=== PATIENT | male | born 1940 | race Caucasian/White ===

== ENCOUNTER → 2019-03-30 | Outpatient (CLI) | payer MEDICARE, SELFPAY | END | disposition home or self-care (01) | LOC: PSN 12:50 | PROVIDERS: Family Provider Family Medicine; PCP Family Medicine; Referring Provider Nurse Practitioner Family; Visit Provider Nurse Practitioner Family | DX: I25.10 Atherosclerotic heart disease of native coronary artery without angina pectoris (principal); I48.92 Unspecified atrial flutter | CPT/HCPCS: 93225; 93226 ==

== ENCOUNTER 2019-08-28 02:39 | Emergency (ER) | payer MEDICARE, SELFPAY ==
[2019-04-14 10:47] VITALS: BMI 30.5
[2019-08-28 02:40] VITALS: BP 109/62; PULSE 61; RESP 16; TEMP 36.6; O2SAT 99; BMI 28.4
--- NOTE | 2019-08-28 02:55 | EKG12_ITS ---
Test Reason : CP Blood Pressure : / mmHG Vent. Rate : 060 BPM Atrial Rate : 060 BPM P-R Int : 232 ms QRS Dur : 086 ms QT Int : 428 ms P-R-T Axes : 056 -48 085 degrees QTc Int : 428 ms Sinus rhythm with 1st degree A-V block with Premature atrial complexes Left axis deviation Abnormal ECG Confirmed by ZIGGY AGUILERA, CHARLES ([id number]), online editor GAGANDEEP SMITH ([id number]) on 08/30/2019 10:28:25 AM Referred By: NORMAN Confirmed By:CHARLES TRINH MD
--- NOTE | 2019-08-28 02:56 | ED.VIS.GEN ---
History of Present Illness Chief Complaint: Chest Pain Informant: Patient Narrative: She stated this evening he developed left-sided chest pressure. Was given 1 dose of nitroglycerin at the long-term. Brought in for evaluation by the paramedics. Patient has a history of coronary artery disease with multiple cardiac risk factors. Status post stents approximately 10 years ago. Sees her over 38 for cardiology. stated that they were planning on putting him on isosorbide because of chest pain that had been occurring this week. He had chest pain for short period of time on Friday as well as . It then came back again today. This is the third episode this week. The patient is on Eliquis and baby aspirin. He takes Eliquis for previous stroke in the past. Is never had a pulmonary embolism. He does have a history of dementia. He is DNR comfort care only. The patient stated he is unsure when the tightness came on this evening. He does not remember things well. He is on oxygen chronically 2 L at the long-term COPD. Denies any other associated symptoms - Past Medical History (1) Atherosclerotic heart disease of [place] coronary artery without angina pectoris Status: Chronic (2) Essential (primary) hypertension Status: Chronic (3) HLD (hyperlipidemia) Status: Chronic (4) Nicotine dependence Status: Chronic (5) Non-small cell carcinoma of lung Status: Chronic (6) Paroxysmal atrial flutter Status: Chronic (7) History of coronary artery stent placement Status: Resolved Comment: PCI-BMS-D1 w/ 2.75 x 14 mm Micro-[employer] Worker Stent 09/23/2007 Past Medical History - Allergies and Home Meds Allergies/Adverse Reactions: Allergies penicillin Allergy (Verified 08/28/19 02:47) Unknown Sulfa (Sulfonamide Antibiotics) Allergy (Verified 08/28/19 02:47) Unknown Primary Care Physician: Mick Mcqueen MD [NON-STAFF] - Prior records reviewed: Yes Past Medical History: - - See problem list Surgical History: - - Cardiac stent, peripheral vascular disease Lives: Group Home Smoking Status: Current every day smoker Alcohol: None Drugs: None Review of Systems General: Denies: Chills, Fever, Sweats Eyes: Denies: Visual changes - bilaterally, Diplopia ENT: Denies: Rhinorrhea, Sore throat Cardiovascular: Reports: Chest pain. Denies: Palpitations Respiratory: Denies: Dyspnea, Cough, Dyspnea on exertion Gastrointestinal: Denies: Abdominal pain, Nausea, Vomiting, Diarrhea, Melena, Hematochezia Genitourinary: Denies: Dysuria, Hematuria, Frequency Musculoskeletal: Denies: Back pain, Extremity Pain Skin: Denies: Rash, Wounds Neurological: Denies: Headache, Weakness, Numbness Physical Exam Vital Signs/Narrative: Vital Signs Temp Pulse Resp BP Pulse Ox 08/28/19 02:40 97.8 F 61 16 109/62 99 General: Well nourished, Well developed, No Acute Distress Head: Normocephalic, Atraumatic Eyes: Perrl, EOMI ENT: Moist mucous membranes, No rhinorrhea Neck: Supple, Nontender Cardiovascular: Regular rate, Regular rhythm, No murmurs Respiratory: No distress, CTA bilaterally, Chest nontender Abdomen: Soft, Nontender, Nondistended, Normal bowel sounds Back: Nontender, Normal Inspection Extremities: Nontender, No edema Skin: Normal color, No rash Neurological: Alert, Oriented x3, Cranial nerves II-XII grossly intact, Normal Strength, Normal Sensation Psychological: Normal affect, Normal Mood Diagnostic/Tx/Re-eval - Medical Decision Making EKG obtained shows sinus rhythm with first-degree heart block PAC noted. T wave inversion aVL. Patient given sublingual nitroglycerin as well as aspirin full-strength. Lab work and chest x-ray obtained chest x-ray shows chronic changes without acute disease. Initial troponin negative. Repeat troponin II hours later negative. Electrolytes and CBC shows no significant abnormalities. Patient resting comfortably on reevaluation. He was given a dose of hydroxyzine as his seem to thinks it might be anxiety related. On reevaluation he is symptom-free resting comfortably. 1 dose of nitroglycerin was given in the department which did transiently drop his blood pressure. He stated it did not have an effect initially. I have a low suspicion for acute coronary syndrome. He is DNR comfort care only. His financial professional is going to start him on high isosorbide and has been in communication with the long-term. I feel he can be discharged back. He is on Eliquis. I have a low suspicion for PE or dissection ED Disposition - Plan for ED Patient: Disposition: Home or Assisted Living Diagnosis: Chest pain at rest Instructions: CHEST PAIN, NonCardiac Referrals: Mick Mcqueen MD [NON-STAFF] - Erik Franco MD [STAFF PHYSICIAN] -
[2019-08-28 03:01] VITALS: O2SAT 98
[2019-08-28 03:04] LABS: Absolute Lymphocyte Count 1.49 X10^3/uL (0.83-4.51); Absolute Neutrophil Count 3.9 X10^3/uL (2.0-7.7); Basophil# 0.04 X10^3/uL; Basophil% 0.6 % (0-1); Eosinophil# 0.27 X10^3/uL; Eosinophils% 4.2 % (0-5); Hematocrit 45.4 % (40-54); Hemoglobin 15.1 g/dL (13.0-16.5); Lymphocyte # 1.49 X10^3/ul (4.0); Lymphocyte % 23.4 % (19-41); Mean Corp Hgb Conc 33.3 g/dL (32-36); Mean Corpuscular Hgb 31.3 pg (27.0-32.0); Mean Platelet Vol. 10.8 fl (6.2-12.0); Monocyte# 0.68 X10^3/uL; Monocyte% 10.7 % (0-10); NRBC Flagged by Analyzer 0 % (0-5); Neutrophil # 3.87 X10^3/uL (2.7-7.7); Neutrophil % 60.8 % (47-70); Platelet Count 180 K/mm3 (150-450); RBC Distribution Width CV 12.7 % (11.6-14.6); RBC Distribution Width SD 44.1 fl (35.1-43.9); Red Blood Count 4.83 M/mm3 (4.6-6.2); White Blood Count 6.4 K/mm3 (4.4-11.0)
[2019-08-28 03:29] LABS: Anion Gap 0 (5-15); BUN 12 mg/dL (7-18); BUN/Creat Ratio 16.9 RATIO (10-20); Calcium,Total 8.6 mg/dL (8.5-10.1); Chloride 103 mmol/L (98-107); Creatinine, Serum 0.71 mg/dL (0.70-1.30); EST Glomerular Filtration Rate 113 mL/min (>60); Est Glom Filt Rate - Afr Amer 137 mL/min (>60); Estimated Creatinine Clearance 59.82 ml/min; Glucose 135 mg/dL (74-106); Potassium 3.8 mmol/L (3.5-5.1); Sodium Level 139 mmol/L (136-145)
[2019-08-28] MEDS: Aspirin 81 MG TAB.CHEW 324 MG PO (03:30)
[2019-08-28 03:32] VITALS: BP 118/63; PULSE 60
[2019-08-28] MEDS: Nitroglycerin SL (ED/IMG/CATH) 0.4 MG TABLET SUBLINGUAL (03:32)
[2019-08-28 03:39] VITALS: BP 118/63; PULSE 68; RESP 16; O2SAT 100
[2019-08-28] MEDS: hydrOXYzine PAM 25 MG Capsule PO (03:40)
[2019-08-28 04:00] VITALS: BP 113/60; PULSE 60; RESP 16; O2SAT 100
[2019-08-28 05:00] VITALS: BP 116/70; RESP 60; O2SAT 100
--- NOTE | 2019-08-28 13:18 | RAD_ITS ---
STUDY: X-RAY CHEST REASON FOR EXAM: Male, 79 years old. CHEST PAIN STARTING TODAY TECHNIQUE: PA and lateral views of the chest. COMPARISON: 08/07/2015. FINDINGS: There is elevation of the left hemidiaphragm. There is no pleural effusion. There is left perihilar scarring with atelectasis. The right hemithorax is clear. Normal size heart. Normal mediastinum and jessica. Normal visualized pulmonary arteries. There is atherosclerotic calcification of the aortic arch with tortuosity. There is demineralization of the osseous structures. There is degenerative osteoarthritis of the bilateral shoulders. There is no demonstrated abnormality of the visualized soft tissue structures of the upper abdomen. RAD/Chest PA and Lateral IMPRESSION: Left perihilar scarring with atelectasis, otherwise no acute cardiopulmonary disease. Electronically Signed: Shelbi Sampson MD at 3:42 EST , Service support ,
== END 2019-08-28 06:41 | disposition home or self-care (01) ==
PROVIDERS: Emergency Provider Emergency Medicine; Family Provider Family Medicine; PCP Family Medicine
DX: R07.89 Other chest pain (principal); I44.0 Atrioventricular block, first degree; I49.1 Atrial premature depolarization; I25.10 Atherosclerotic heart disease of native coronary artery without angina pectoris; I10 Essential (primary) hypertension; E78.5 Hyperlipidemia, unspecified; I48.92 Unspecified atrial flutter; F03.90 Unspecified dementia, unspecified severity, without behavioral disturbance, psychotic disturbance, mood disturbance, and anxiety; J44.9 Chronic obstructive pulmonary disease, unspecified; Z85.118 Personal history of other malignant neoplasm of bronchus and lung; Z86.73 Personal history of transient ischemic attack (TIA), and cerebral infarction without residual deficits; Z66 Do not resuscitate; Z95.5 Presence of coronary angioplasty implant and graft; Z79.01 Long term (current) use of anticoagulants; Z79.82 Long term (current) use of aspirin; Z99.81 Dependence on supplemental oxygen; Z79.899 Other long term (current) drug therapy; F17.200 Nicotine dependence, unspecified, uncomplicated
CPT/HCPCS: 71046; 80048; 84484; 85025; 93005; 99285; A4216